=== PATIENT | male | born 2005 | race Two or more races ===

== ENCOUNTER 2023-09-14 06:10 | Emergency (ER) | payer MEDICAID ==
[2023-09-14 06:26] VITALS: BP 126/77; O2SAT 100
--- NOTE | 2023-09-14 07:56 | ED Physician Documentation ---
PD HPI CHEST PAIN - Stated complaint Stated Complaint: EDWIN DEXTER - Chief complaint Chief Complaint: Resp - History obtained from History obtained from: Patient - Additional information Additional information: The patient comes to the emergency department chief complaint of chest pain that started about 3 hours ago. He states he feels as though there is "an air bubble" in his upper chest. He keeps wanting to burp but it does not seem to clear it and the more he tries to burp the more he upsets his stomach and begins to feel nauseated. The patient states this is never happened to him before. He does eat a lot of spicy food and this often gives him indigestion., But he has never had a sensation like this. He denies recent illness. No fevers, chills, aches, cough, or shortness of breath. No sore throat. The patient denies any swelling in his legs or pain in his calves. He also has some left shoulder pain that extends to his left scapula. He states this hurts with certain movements. He is right-hand dominant, however. The patient is otherwise fairly healthy. He denies any history of diabetes, hypertension, or any known Cardiac issues. He is scheduled to see a PCP on the of this month because of some stomach issues he has been having and also, some concerns over ADHD and anxiety. No abdominal pain currently. The patient rates his pain a 2 out of 10 right now in the chest. No other complaints at this time. PD PAST MEDICAL HISTORY - Past Medical History Past Medical History: No Other Past Medical History: Smokes marijuana occasionally - Past Surgical History Past Surgical History: No - Present Medications Home Medications: Ambulatory Orders Medication Instructions Recorded Confirmed No Known Home Medications 09/14/23 09/14/23 - Allergies Allergies/Adverse Reactions: Allergies Allergy/AdvReac Type Severity Reaction Status Date / Time No Known Drug Allergies Allergy Verified 09/14/23 06:24 - Social History Does the pt smoke?: No Smoking Status: Never smoker Does the pt drink ETOH?: Yes ETOH Use: Liquor Does the pt have substance abuse?: No - Immunizations Immunizations are current?: Yes - POLST Patient has POLST: No PD ED PE NORMAL - Vitals Vital signs reviewed: Yes - General General: Alert and oriented X 3, No acute distress, Well developed/nourished - HEENT HEENT: Atraumatic, PERRL, EOMI, Moist mucous membranes - Neck Neck: Supple, no meningeal sign - Cardiac Cardiac: RRR, No murmur - Respiratory Respiratory: No respiratory distress, Clear bilaterally - Abdomen Abdomen: Soft, Non tender, Non distended - Back Back: No spinal TTP, Other (Tenderness palpation around left medial scapular border ) - Derm Derm: Normal color, Warm and dry, No rash - Extremities Extremities: No deformity, No edema - Neuro Neuro: Other (Grossly intact, alert,) - Psych Psych: Normal mood, Normal affect Results - Vitals Vitals: Vital Signs - 24 hr 09/14/23 06:16 Temperature 36.7 C Heart Rate 59 L Respiratory 16 Rate Blood Pressure 126/77 O2 Saturation 100 Oxygen O2 Source Room air - EKG (time done) 0749 EKG releavant findings:: EKG personally interpreted by author of this note. Relevant findings are: Rate: Rate (enter#) (63) Rhythm: NSR Corea: Normal Intervals: Normal VT QRS: Normal Ischemia: Normal ST segments Compare to prior EKG: Old EKG unavailable Computer interpretation: Agree with computer - Rads (name of study) Chest x-ray Relevant Findings:: Final report received, See rad report (neg) PD Medical Decision Making - ED course Complexity details: reviewed results, re-evaluated patient, considered differential, d/w patient ED course: The patient was low risk for a serious cause of chest pain but I felt a screening EKG and chest x-ray were reasonable. His vital signs were normal and his exam was unremarkable. The EKG and chest x-ray were without significant findings. I discussed with the patient that I suspect esophageal source of his pain, combined with some musculoskeletal contribution around the left shoulder. He has an appointment coming up in the near future with primary care which I have encouraged him to keep. We have discussed a discussion of antacids and endoscopy may be a good follow-up to this visit, and should the patient's symptoms become ongoing or recurrent. We discussed the usual indications for return to the emergency department. Departure - Departure Disposition: 01 Home, Self Care Clinical Impression: Chest pain, Esophageal spasm Condition: Stable Instructions: ED Chest Pain NonCardiac Comments: Your chest x-ray and EKG look great today. There is no evidence of a serious cause of your pain. You do have some tenderness of the musculature around your shoulder blade and that this may be responsible for some of the left shoulder pain you are feeling. It is very common location for muscular strain and tightness. You are exceedingly low risk for the really bad causes of chest pain and between your physical exam, the vital signs which are normal, and your normal EKG and chest x-ray, Your evaluation today has been reassuring. I suspect that your pain is coming from your esophagus. Most likely, the sense that you need to burp something out is caused by spasm of the esophagus which is not unusual in people who eat a lot of spicy food and have some reflux. When you see your primary provider, you may talk about potentially being on some antacids. If this becomes a recurrent or chronic problem, then endoscopy would be the next reasonable step in evaluation, and your primary doctor or provider can set this up for you. Forms: PCP List
--- NOTE | 2023-09-14 08:22 | XRAY Report ---
PROCEDURE: Chest 1V INDICATIONS: chest pain TECHNIQUE: One view of the chest was acquired. COMPARISON: None. FINDINGS: Surgical changes and devices: None. Lungs and pleura: Nodularity projecting over the right upper lung zone. Mediastinum: Mediastinal contours appear normal. Heart size is normal. Bones and chest wall: No suspicious bony lesions. Overlying soft tissues appear unremarkable. IMPRESSION: Nodularity projecting over the right upper lung zone, concerning for infectious or inflammatory bronc hiolitis. Reviewed by: Chadd Danielle MD on 09/14/2023 8:21 AM PDT Approved by: Chadd Danielle MD on 09/14/2023 8:21 AM PDT Station ID: [id number]
== END 2023-09-14 08:30 | disposition home or self-care (01) ==
LOC: ED 06:10
DX: R07.9 Chest pain, unspecified (principal)
CPT/HCPCS: 93005; 99283

== ENCOUNTER 2023-12-23 11:12 | Emergency (ER) | payer MEDICAID ==
--- NOTE | 2023-12-23 12:22 | ED Physician Documentation ---
History of Present Illness - Stated complaint Stated Complaint: INGESTED BLEACH - Chief complaint Chief Complaint: General - History obtained from History obtained from: Patient - History of Present Illness Timing: Yesterday Pain level max: 0 Pain level now: 0 - Additonal information Additional information: 18-year-old male presents to the emergency department stating that he has had nausea and vomiting this morning. He states that yesterday he bought a box of bleach at the [employer] and it spilled in his car, he states he cleaned it up and some got on his hands. He then bit his nails and ingested a small amount of the powder. He states that he feels like he can still taste the pattern the back of his throat and that is making him nauseated. No abdominal pain, no fevers. He states that his stool looked red this morning but not bloody. No recent travel. No recent antibiotics. Review of Systems Constitutional: denies: Fever, Chills GI: denies: Abdominal Pain, Hematemesis, Bloody / black stool : denies: Dysuria Skin: denies: Rash Musculoskeletal: denies: Neck pain, Back pain Neurologic: denies: Headache PD PAST MEDICAL HISTORY - Past Medical History Past Medical History: No - Past Surgical History Past Surgical History: No - Present Medications Home Medications: Ambulatory Orders Medication Instructions Recorded Confirmed Ondansetron Odt [Zofran] 4 mg TL Q6H PRN #10 tablet 12/23/23 - Allergies Allergies/Adverse Reactions: Allergies Allergy/AdvReac Type Severity Reaction Status Date / Time No Known Drug Allergies Allergy Verified 12/23/23 11:29 - Social History Does the pt smoke?: No Smoking Status: Never smoker Does the pt drink ETOH?: Yes Does the pt have substance abuse?: No - Immunizations Immunizations are current?: Yes - POLST Patient has POLST: No PD ED PE NORMAL - Vitals Vital signs reviewed: Yes - General General: Alert and oriented X 3, No acute distress - HEENT HEENT: PERRL, Moist mucous membranes, Pharynx benign - Neck Neck: Supple, no meningeal sign - Cardiac Cardiac: RRR, Strong equal pulses - Respiratory Respiratory: No respiratory distress, Clear bilaterally - Abdomen Abdomen: Soft, Non tender, Non distended - Derm Derm: Warm and dry - Neuro Neuro: Alert and oriented X 3 - Psych Psych: Normal mood, Normal affect Results - Vitals Vitals: Vital Signs - 24 hr 12/23/23 11:21 Temperature 36.5 C Heart Rate 88 Respiratory 18 Rate Blood Pressure 116/64 O2 Saturation 98 Oxygen O2 Source Room air PD Medical Decision Making - ED course Complexity details: reviewed results, re-evaluated patient, considered differential, d/w patient ED course: Patient is well-appearing, nontoxic. Afebrile. The amount of purported bleach powder ingested would not be enough to cause his symptoms. Did discuss with poison control, they agree as well. Given a dose of Zofran here and patient is tolerating p.o. without difficulty. We will encourage p.o. hydration at home and follow-up with his doctor for further care as needed. Patient counseled regarding signs and symptoms for which I believe and urgent re-evaluation would be necessary. Patient with good understanding of and agreement to plan and is comfortable going home at this time This document was made in part using voice recognition software. While efforts are made to proofread this document, sound alike and grammatical errors may occur. Departure - Departure Disposition: 01 Home, Self Care Clinical Impression: Vomiting Qualifiers: Vomiting type: unspecified Nausea presence: with nausea Qualified Code(s): R11.2 - Nausea with vomiting, unspecified Condition: Good Instructions: ED Nausea Vomiting Follow-Up: Cate Nichols PA [Primary Care Provider] - Within 1 week Prescriptions: Ondansetron Odt [Zofran] 4 mg TL Q6H PRN #10 tablet PRN Reason: Nausea / Vomiting Comments: Please make sure you are drinking plenty of fluids at home. As we discussed the bleach is highly unlikely to have caused any significant reaction. This is likely a viral illness. I have given you a prescription for Zofran which is the nausea medicine you received here. Forms: PCP List, Activity restrictions
[2023-12-23] MEDS: ONDANSETRON ODT 4 MG TABLET TL STA (12:25)
[2023-12-23 13:18] VITALS: BP 151/90; O2SAT 99
== END 2023-12-23 13:18 | disposition home or self-care (01) ==
LOC: ED 11:12
DX: R11.2 Nausea with vomiting, unspecified (principal)
CPT/HCPCS: 99283; 99284; Q0162